=== PATIENT | female | born 1950 | race Caucasian/White ===

== ENCOUNTER 2019-05-18 09:52 | Outpatient (CLI) | payer MEDICARE, OTHER ==
--- NOTE | 2019-05-18 12:48 | SLEEP CARE CONSULTATION ---
Information from patient questionnaire entered by Lu Merrill. I have reviewed and concur with the information entered by Lu Merrill. This document represents the service I personally performed and the decisions made by me, Michael Yeager MD, [facility]. History of Present Illness Reason for Visit: New patient Chief Complaint: reports: Other (unknown if she still needs her CPAP) Usual bedtime: 2100 Observed to quit breathing while asleep: Yes Sleeps alone due to snoring: No Number of times waking at night: 2 Reasons for waking at night: reports: Bathroom Usually gets out of bed at: [id number] Feels refreshed in the morning: No Morning headache: No Prior sleep studies: Yes Additional HPI information: I had the pleasure of seeing Ms. Mishra along with her daughter today regarding the possibility of her having a sleep disorder. As you know, she is a 68 year old lady who was diagnosed with obstructive sleep apnea-hypopnea in [place] about 10 years ago. Results are not available. She used a BiPAP but quit a year ago after her . She sleeps fairly well without CPAP. She no longer snores. She lost 30 lbs. However, she still is being charged by [facility] for the machine, probably because she has not been compliant with the new device. Her daughter would like to know if the patient still need to use the BiPAP. Subjective Initial [place] Sleepiness Scale score: 2 Past Medical History Past Medical History: reports: Hypertension, Hypothyroidism, Asthma, Depression, GERD, Other (dementia) Social History The patient's occupation is retired. Patient is / and lives in [place]. Have you smoked in the past 12 months: No Alcohol use: No Caffeine use: Yes Caffeine amount and frequency: 1/day Family History Family history of sleep disordered breathing: No Allergies and Home Medications Drug allergies reviewed: Yes (NKDA) Home medication list reviewed: Yes (lisinopril, oxybutynin, trazodone, donezepril, nemantine, calcium, vitamin ) Review of Systems Weight loss over past 5 years: 30 Cardiovascular: reports: high blood pressure Respiratory: denies: shortness of breath, wheeze, sputum production, chronic cough, other Gastrointestinal: reports: heartburn Urinary: reports: incontinence, frequency, urgency Neurological: reports: disorientation, other (dementia) Psychiatric: reports: depression Ear/Nose/Throat: reports: sinus problems Endocrine: denies: thyroid disease, history of goiter, sluggishness, too hot or cold, excessive thirst, increased appetite, increased urination, unexplained weakness, other Musculoskeletal: reports: joint pain, back pain, mobility problems Immunologic: reports: allergies to food or environment Physical Exam Vital signs obtained and entered by: Dr. Yeager Height: 4 ft 10 in Weight: 102 lb (Physical exam is deferred due to the Coronavirus epidemic) Body Mass Index: 21.3 BMI Classification: Healthy weight Impression and Plan IMPRESSION: 1. Obstructive Sleep Apnea-Hypopnea Syndrome, as previously diagnosed but the severity is unknown. The 30-lb weight loss could have very well cured the sleep-disordered breathing. The patient is not snoring without the BiPAP. This is a good sign that she no longer has obstructive sleep apnea-hypopnea. I will repeat the in-laboratory polysomnography to see if positive airway pressure therapy is still necessary. Plan: 1. Discontinue the BiPAP therapy for now. Prescription sent to [facility]. 2. Schedule a manual CPAP/BiPAP titration study. 3. Return in 1 to 2 weeks after the study to discuss results and initiate therapy. I spent 100% of this visit face to face with the patient with greater than 50% of this was spent time counseling the patient and coordination of care.
== END 2019-05-18 09:53 | disposition home or self-care (01) ==
LOC: SC 09:52
PROVIDERS: ATTEND Internal Medicine Pulmonary Disease
DX: G47.33 Obstructive sleep apnea (adult) (pediatric) (principal)
CPT/HCPCS: 99203; G0463; 99212

== ENCOUNTER 2019-09-01 20:54 | Outpatient (CLI) | payer MEDICARE, OTHER | END 2019-09-01 20:55 | disposition home or self-care (01) | LOC: SC 20:54 | PROVIDERS: ATTEND Internal Medicine Pulmonary Disease | DX: G47.33 Obstructive sleep apnea (adult) (pediatric) (principal) | CPT/HCPCS: 95810 ==